=== PATIENT | female | born 2000 | race Caucasian/White ===

== ENCOUNTER 2023-07-01 15:18 | Emergency (ER) | payer BC ==
[2023-07-01] MEDS ORDERED: Ketorolac Tromethamine 30 MG/ML VIAL ONE (16:47)
[2023-07-01 17:16] LABS: Hematocrit 38.5 % (34.9-44.5); Hemoglobin 12.5 g/dL (12.0-15.5); Mean Corpuscular HGB CONC 32.5 g/dL (32.0-36.0); Mean Corpuscular Hemoglobin 26.8 pg (27.0-33.0); Mean Corpuscular Volume 82.4 fl (81.6-98.3); Mean Platelet Volume 10.5 fl (7.4-10.4); Platelet Count 142 10x3/uL (150-450); RBC Distribution Width 13.2 % (11.5-14.5); Red Blood Cell (RBC) Count 4.67 10x6/uL (3.90-5.03); White Blood Cell (WBC) Count 9.1 10x3/uL (3.5-10.5)
[2023-07-01 17:17] LABS: MDiff Complete? YES
[2023-07-01 17:25] LABS: ALT (SGPT) 789 U/L (8-55); AST (SGOT) 709 U/L (5-34); Albumin 3.9 g/dL (3.5-5.0); Alkaline Phosphatase 243 U/L (40-100); Anion Gap 14 mmol/L (10-20); BUN (Urea Nitrogen) 9 mg/dL (7.0-18.7); Bilirubin, Total 0.9 mg/dL (0.2-1.2); Calc. Creatinine Clearance 0 mL/min (70-130); Calcium 8.9 mg/dL (7.8-10.44); Carbon Dioxide 25 mmol/L (22-29); Chloride 102 mmol/L (98-107); Estimated GFR 130; Globulin 3.1 g/dL (2.4-3.5); Glucose 91 mg/dL (70-105); Potassium 3.3 mmol/L (3.5-5.1); Sodium 138 mmol/L (136-145)
[2023-07-01 17:33] LABS: MONO NEGATIVE CONTROL ZONE White (Negative) (White); MONO POSITIVE CONTROL Pink Line (Positive) (PINK/RED); Mononucleosis POSITIVE (NEGATIVE)
[2023-07-01 17:45] LABS: SARS-CoV-2 NAA Rapid Test Not Detected (NotDetected)
[2023-07-01 17:49] LABS: Band 14 % (5-11); Lymphocytes 55 % (28-48); Monocytes 7 % (0-4); Neutrophil 14 % (31-61); Reactive Lymphocytes 10 % (0-10)
[2023-07-01 17:58] LABS: Anisocytosis SLIGHT = 6-15 cells (100X) (0-5/hpf); RBC Morph Comment Within Normal Limits
[2023-07-01 17:59] LABS: Platelet Adequacy Comment Appears Adequate
[2023-07-01 19:02] LABS: Bilirubin Neg (Negative); Blood, Urine 25 (Negative); Clarity Clear (Clear); Glucose, Urine (Dipstick) Normal (Negative); Ketone, Urine 5 mg/dL (Negative); Leukocyte Negative (Negative); Nitrite Negative (Negative); Protein, Urine (Dipstick) 15 mg/dl (Neg-Trace); Specific Gravity, Urine 1.015 (1.005-1.030); pH, Urine 6.5 (5.0-9.0)
[2023-07-01 19:14] LABS: CAUTI Indications for Culture Fever or rigors; RBC/HPF 0-3 HPF (0-3); Squamous Epithelial 0-3 HPF (0-3)
[2023-07-01 19:15] LABS: Bacteria/HPF 2+ HPF (None Seen); Urine Culture Reflex No No; WBC/HPF 0-3 HPF (0-3)
[2023-07-01] MEDS ORDERED: Ondansetron PF 4 MG/2 ML Vial ONE (19:18)
[2023-07-01] MEDS ORDERED: Metoclopramide HCl 10 MG/2 ML VIAL ONE (20:10)
[2023-07-01] MEDS ORDERED: diphenhydrAMINE 50 MG/ML VIAL ONE (20:10)
[2023-07-01 21:29] LABS: Prothrombin Time 11.2 sec (9.5-12.1)
[2023-07-01 23:20] LABS: HBCM Index 0.56 S/CO (0-0.79); HBSAg Index 0.22 S/CO (0-0.99); Hep A IgM AB Non-Reactive S/CO (NonReactive); Hep A IgM S/CO 0.24 S/CO (0-0.79); Hep B Surf Ag Non-Reactive S/CO (NonReactive); Hep C IgG Ab Non-Reactive S/CO (NonReactive); Hep C Index 0.08 S/CO (0-0.79); Hepatitis B Core IgM Abs Non-Reactive S/CO (NonReactive)
== END 2023-07-01 21:35 | disposition home or self-care (01) ==
LOC: CSHERS 15:18
DX: B27.90 Infectious mononucleosis, unspecified without complication (principal); R16.1 Splenomegaly, not elsewhere classified; R74.01 Elevation of levels of liver transaminase levels; Z20.822 Contact with and (suspected) exposure to COVID-19
CPT/HCPCS: 76705; 80053; 80074; 81001; 83605; 83690; 85025; 85610; 85730; 86140; 86308; 96374; 96375; J1200; J1885; J2405; J2765